=== PATIENT | female | born 1990 | race Caucasian/White ===

== ENCOUNTER 2021-05-25 11:04 | Emergency (ER) | payer OTHER, SELFPAY ==
[2021-05-25 11:18] VITALS: BP 130/69; PULSE 80; RESP 16; TEMP 36.2; O2SAT 100
--- NOTE | 2021-05-25 11:21 | ED.EAR ---
HPI - Ear Problem General Chief complaint: Ear Stated complaint: Ear Pain Time Seen by Provider: 05/25/21 11:21 Source: patient and RN notes reviewed Mode of arrival: ambulatory Limitations: no limitations History of Present Illness HPI Narrative: 30-year-old female presents to the [facility] with complaints of right ear pain and bleeding from the ear. Patient reports bilateral ear pressure and fullness for the last 2 weeks. Has been using Q-tips in her ears. Noticed blood coming from her right ear today. MD Complaint: ear pain Related Data Allergies Allergy/AdvReac Type Severity Reaction Status Date / Time No Known Allergies Allergy Verified 05/25/21 11:27 Review of Systems Review of Systems: All systems reviewed & are unremarkable except as noted in HPI and below Constitutional: Constitutional: Reports no additional constitutional complaints, Denies chills and Denies fever(s) Eyes: Eyes: Reports no additional eye complaints ENT: Reports as per HPI, Denies change in voice, Denies dental pain, Denies vertigo, Denies dizziness and Denies throat swelling Comments: Right ear pain with bleeding Cardiovascular: Cardiovascular: Reports no additional cardiovascular complaints, Denies chest pain and Denies dyspnea Respiratory: Respiratory: Reports no additional respiratory complaints, Denies cough and Denies dyspnea Gastrointestinal: Gastrointestinal: Reports no additional gastrointestinal complaints, Denies abdominal pain, Denies nausea and Denies vomiting Musculoskeletal: Musculoskeletal: Reports no additional musculoskeletal complaints Integumentary/Breasts: Skin/Breast: Reports system reviewed and no additional complaints, except as docu Neurologic: Reports system reviewed and no additional complaints, except as documented, Denies vertigo and Denies dizziness Psychiatric: Psychiatric: Reports no additional psychiatric complaints Allergic/Immunologic: Allergic/Immunologic: Reports no additional allergic/immunologic complaints and Denies throat swelling [facility] [place] Past Medical History Medical History (Updated 05/25/21 @ 19:20 by Sarah Mi) No significant medical problems Surgical History Surgical History (Updated 05/25/21 @ 19:19 by Sarah Mi) No pertinent past surgical history Social History Social History (Updated 05/25/21 @ 19:19 by Sarah Mi) Living arrangements: with family Gender identity (if verbalized by the patient): Female Comments At the time of my signature, I reviewed and agree with the nursing past medical, surgical, social, and family history. There is no relevant family history pertinent to the patient complaint. Exam Const: General: healthy appearing, no acute distress and alert Nutritional Appearance: well nourished Orientation/consciousness: patient oriented x3 Limitations: no limitations HENMT: Head: normal to inspection Ears: external ears normal, TM's normal bilaterally and Abnormal EAC present erythema on the right, edema on the right, EAC tenderness on the right and otic discharge bloody on the right (From mid posterior canal. TM intact with clear fluid) General nose exam: Normal external nose present and Normal nasal mucous membranes and turbinates present Face and sinus: normal facial exam Mouth: Yes Normal oral and palatal mucosa present Throat: posterior oropharynx normal, tonsils normal and uvula midline Eyes: Conjunctivae: conjunctivae normal Pupils: Equal, round and reactive pupils present Neck: Neck: normal visual inspection, no lymphadenopathy and no meningeal signs Chest: Chest palpation & inspection: normal inspection of the chest Resp: Effort & Inspection: normal respiratory effort and no use of accessory muscles Auscultation: clear to auscultation bilaterally, no crackles, no rales, no rhonchi and no wheezes Cardio: Rate: regular rate Rhythm: regular rhythm Back/Spine/Pelvis: Back: no CVA tenderness Skin: General skin exam: normal color
== END 2021-05-25 11:32 | disposition home or self-care (01) ==
PROVIDERS: Emergency Provider Nurse Practitioner; PCP Family Medicine
DX: S00.411A Abrasion of right ear, initial encounter (principal); L08.9 Local infection of the skin and subcutaneous tissue, unspecified; X58.XXXA Exposure to other specified factors, initial encounter
CPT/HCPCS: 99203; G0463

== ENCOUNTER 2024-10-30 16:24 | Emergency (ER) | payer OTHER, SELFPAY ==
--- NOTE | ~2024-10-30 | XR_ITS ---
XR chest 2V Ordering provider: Marivel Murphy APRN History: 34 years Female with . cough wheezing 1 day nonsmoker hx allergy induced asthma . Comparison: None. FINDINGS: MEDIASTINUM: The cardiac silhouette is not enlarged. LUNGS: No infiltrates, effusions or pneumothorax. OTHER: No free air under the diaphragm. IMPRESSION: No acute cardiopulmonary pathology Reviewed, dictated and finalized at location A.
[2024-10-30 16:33] VITALS: BP 139/74; PULSE 125; RESP 24; TEMP 37.5; O2SAT 99
--- NOTE | 2024-10-30 16:33 | ED_ITS ---
HPI - SOB/Dyspnea General Chief Complaint: Shortness of Breath/Dyspnea Stated Complaint: SOB/Wheezing Time Seen by Provider: 10/30/24 16:30 Source: patient Mode of arrival: ambulatory Limitations: no limitations History of Present Illness HPI Narrative: 34-year-old female presented for complaint shortness of breath and wheezing. Onset today. Endorses one week of productive cough of brown sputum and nasal congestion, then developed body aches and fever the last few days. Says she felt SOB last night, worse throughout today then started with wheezing. Reports fever 101.6. Reports asthma due to allergies, and says she gets diagnosed with bronchitis every 5 months. Related Data Home Medications ?Medication ?Instructions ?Recorded ?Confirmed ?Last Taken ?Type albuterol sulfate 90 mcg/actuation inhalation 10/30/24 Unknown History aerosol inhaler Allergies Allergy/AdvReac Type Severity Reaction Status Date / Time No Known Allergies Allergy Verified 10/30/24 17:25 Review of Systems Review of Systems: CONSTITUTIONAL: reports body aches, fever, chills, or sweats. EYES: Denies visual changes, redness, or discharge. ENT: reports rhinorrhea, congestion, deniessore throat, or otalgia. CARDIOVASCULAR: Denies chest pain, palpitations, or edema. RESPIRATORY: Reports cough, sob, wheezing. GASTROINTESTINAL: Denies abdominal pain, nausea, vomiting, or diarrhea. SKIN: Denies rash MUSCULOSKELETAL: Denies back pain, joint pain, or myalgia. NEUROLOGIC: Denies headache. PSYCH: Denies depression or anxiety. All systems reviewed & are unremarkable except as noted in HPI and below PMFSH Past Medical History Medical History (Updated 10/30/24 @ 17:30 by Marivel Murphy APRN) No significant medical problems Surgical History Surgical History (Updated 05/25/21 @ 19:19 by Sarah Mi APRN) No pertinent past surgical history Social History Social History (Updated 05/25/21 @ 19:19 by Sarah Mi APRN) Living arrangements: with family Gender identity (if verbalized by the patient): Female Comments At time of signature, I have reviewed and agree with nursing past medical, surgical, social and family history unless otherwise noted. Please see nursing chart for further information. There is no relevant family history pertinent to the presenting complaint Exam Narrative: GENERAL: mildly ill-appearing, in no acute distress. EYES: EOMI. No redness or drainage. Conjunctivae normal. ENT: Mucous membranes pink and moist. congestion and rhinorrhea. NECK: Normal AROM. CHEST: Tachypnea noted, No respiratory distress. Wheezing to bases. Speaks full sentences. HEART: Tachycardic and regular rhythm. No murmur appreciated. EXTREMITIES: Normal range of motion. No edema. SKIN: Warm, dry, no rash. Capillary refill normal. Normal skin turgor. NEURO: Alert and oriented x3. Gait steady. PSYCH: Normal affect. Course Course Emergency Course: Patient is aware of diagnosis, understands and agrees to treatment plan. Anticipatory guidance given. Patient agrees to follow-up as directed and is aware of reasons to seek care at the emergency department. Portions of this record may have been created with voice recognition software Level of Care: Express Care Visit Vital Signs Vital signs: Vital Signs Temperature 99.5 F 10/30/24 16:33 Pulse Rate 125 H 10/30/24 16:33 Respiratory Rate 24 H 10/30/24 16:33 Blood Pressure 139/74 10/30/24 16:33 Pulse Oximetry 99 10/30/24 16:33 Oxygen Delivery Room Air 10/30/24 16:33 Temperature 99.5 F 10/30/24 16:33 Pulse Rate 124 H 10/30/24 17:05 Respiratory Rate 26 H 10/30/24 17:05 Blood Pressure 139/74 10/30/24 16:33 Pulse Oximetry 98 10/30/24 17:05 Oxygen Delivery Room Air 10/30/24 16:33 MDM - SOB/Dyspnea MDM Narrative Medical decision making narrative: Pt with sob, wheezing, and cough. Reviewed CXR with pt. Desat 92% after walking from radiology. reassessed after albuterol nebulizer, pt reported significant improvement in symptoms. Lungs clear to auscultation. O2 sat 98% Reviewed prescriptions. Discussed physical exam findings. Advised supportive measures and signs/symptoms to go to the ER. Pt is appropriate for outpt treatment and f/u. Differential Diagnosis Differential diagnosis: Likely acute exacerbation of chronic obstructive airways disease, community acquired pneumonia, asthma with exacerbation and pulmonary embolism Discharge Plan Discharge Clinical Impression: Asthma with exacerbation, Bronchitis Patient Disposition: Home Condition: Stable Instructions: Antibiotic Form, Asthma (ED) Additional Instructions: Visit your primary care doctor if You have: wheezing, shortness of breath, or a cough despite taking medicine to prevent attacks. thickening of sputum or Your sputum changes (from clear or white to yellow, green, foley, or bloody) any problems that may be related to the medicines you are taking (such as a rash, itching, swelling, or trouble breathing). using a reliever medicine more than 2 to 3 times per week. Visit the ER if You are: short of breath even at rest or when doing very little physical activity. develop difficulty eating, drinking, or talking due to asthma symptoms. having chest pain or you feel that your heart is beating fast. lightheaded, dizzy, faint or have bluish lips or fingernails. fever or persistent symptoms for more than 2 to 3 days or symptoms suddenly get worse. getting worse and are unresponsive to treatment during an asthma attack. Acute bronchitis can be contagious because it is usually caused by infection with a virus or bacteria. It is usually for a few days but you can be contagious for up to one week. Avoid crowds until you do not have a fever and symptoms are improved Take medication as directed Use inhaler every 6 hours for the next 24 hours. Recommend Flonase spray and Zyrtec (or Claritin/Angélica) over the counter Cough syrup may cause drowsiness; avoid driving or take it at night time. Tylenol every 8 hours as needed for pain Symptomatic treatment includes: rest, fluids, and increase humidity of the air at home. Follow up with your primary care provider as needed in 1 week Go to the ER for worsening symptoms or concerns Patient Language: Irish Prescriptions: New levalbuterol tartrate 45 mcg/actuation HFA aerosol inhaler 2 inh inhalation Q6H PRN (Reason: shortness of breath or wheezing) Qty: 15 0RF methylprednisolone [Medrol (Arian)] 4 mg tablets,dose pack See Rx Instructions .ROUTE .COMPLEX Qty: 21 0RF Rx Instructions: orally per package directions Start 10/31 azithromycin [Zithromax Z-Arian] 250 mg tablet See Rx Instructions .ROUTE .COMPLEX Qty: 6 0RF Rx Instructions: For 250 mg dose pack: take 500 mg today (day 1), then 250 mg for 4 days (days 2-5) No Action albuterol sulfate 90 mcg/actuation HFA aerosol inhaler INHALATION Follow-up/Referrals: PHYSICIAN,RETAIL SECURITY PROFESSIONAL [Primary Care Provider] -
[2024-10-30] MEDS: ALBUTEROL SULFATE NEB 2.5 MG/3 ML INH INHALATION (16:51)
[2024-10-30 16:52] VITALS: PULSE 123; RESP 26; O2SAT 92
[2024-10-30 17:05] VITALS: PULSE 124; RESP 26; O2SAT 98
== END 2024-10-30 17:38 | disposition home or self-care (01) ==
PROVIDERS: Emergency Provider Nurse Practitioner Family
DX: J45.901 Unspecified asthma with (acute) exacerbation (principal)
CPT/HCPCS: 71046; 94640; 96372; 99213; G0463; J2919